=== PATIENT | female | born 2000 | race Caucasian/White ===

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

== ENCOUNTER 2018-12-06 06:59 | Day surgery (SDC) | payer OTHER ==
[2018-12-04 18:54] VITALS: BMI 23.4
[2018-12-06] VITALS (11 sets, daily range): BP systolic 90–104; BP diastolic 48–62; PULSE 56–87; RESP 11–36; Ht 162.6 cm; Wt 62.4 kg
[~2018-12-06] VITALS: Ht 162.6 cm; Wt 62.4 kg
[~2018-12-06 06:59] MED LIST changes: +BEN25 PO; +CEFAZOLIN 2 GM/50 ML (PMX) 50 ML IVPB SCH; +EPIN0.3P4 INJ; +FAMO-96 PO; +IBUP-1561 PO; -IBUP400T22 PO; +PRED20TA PO; +SOD CHLORIDE 0.9% 1,000 ML IV SCH
--- NOTE | 2018-12-06 08:38 | PREAC ---
Date/Time of Note Date/Time of Note DATE: 12/06/18 TIME: 08:36 Anesthesia Eval and Record Evaluation Time Pre-Procedure Interview DATE: 12/06/18 TIME: 08:36 Age 18 Sex female NPO: 8 hrs Preoperative diagnosis left wrist ventral ganglion cyst Planned procedure excision left wrist ventral ganglion cyst Past Medical History Past Medical History: None Surgery & Anesthesia Issues No known issue (never had anesthesia) Meds Anticoagulation: No Beta Soraya within 24 hr: No Reason Beta Soraya not given: Pt. not on B-Soraya Discontinued Scripts Famotidine* (Pepcid*) 20 Mg Tablet, 20 MG PO BID for 4 Days, TAB Prov:NNEKA TRACY PA-C 08/16/17 Diphenhydramine Hcl* (Benadryl*) 25 Mg Cap, 25 MG PO Q6, #30 CAP Prov:NNEKA TRACY PA-C 08/16/17 Epinephrine (Epipen 2-Arnie) 0.3 Mg/0.3 Ml Pen.injctr, 1 EA INJ ONCE PRN for ALLERGIC REACTION, #1 EA Prov:NNEKA TRACY PA-C 08/16/17 Prednisone* (Prednisone*) 20 Mg Tab, 40 MG PO DAILY for 4 Days, TAB Prov:NNEKA TRACY PA-C 08/16/17 Ibuprofen* (Motrin*) 400 Mg Tab, 400 MG PO Q6, #30 TAB Prov:SULAIMAN ALEXIS PA-C 02/01/17 Amoxicillin* (Amoxicillin*) 500 Mg Cap, 500 MG PO TID for 7 Days, #21 CAP Prov:SULAIMAN ALEXIS PA-C 02/01/17 Current Medications Cefazolin Sodium/ Dextrose 50 ml @ 100 mls/hr PREOP IVPB ; Start 12/06/18 at 06:30; Stop 12/06/18 at 20:00 Sodium Chloride 1,000 ml @ 75 mls/hr [id number] IV ; Start 12/06/18 at 06:30; Stop 12/06/18 at 20:00 Meds reviewed: Yes (none) Allergies Coded Allergies: No Known Drug Allergies (Verified Allergy, Mild, 12/06/18) Allergies Reviewed: Yes Labs/Studies Labs Reviewed: Other (HCG only) test: Negative Pre-procedure Exam Last vitals Vital Signs Date Temp Pulse Resp B/P (MAP) Pulse Ox O2 O2 Flow FiO2 Time Delivery Rate 12/06/18 98.2 87 16 103/55 98 Room Air 07:49 (71) Airway: Adequate mouth opening, Adequate thyromental dist Mallampati: Mallampati II Teeth: Normal Lung: Normal Heart: Normal ASA Physical Status ASA physical status: 1 Emergency: None Planned Anesthetic General/MAC: MAC Planned Pain Management Parenteral pain med, Local by surgeon Pre-operative Attestations Prior to commencing anesthesia and surgery, the patient was re-evaluated, there was verification of: *The patient's identity *The results of appropriate recent lab work and preoperative vital signs *The above evaluation not changing prior to induction *Anesthetic plan, risk benefits, alternative and complications discussed with patient/family; questions answered; patient/family understands, accepts and wishes to proceed. MATY MELENDEZ Dec 06, 2018 08:38
[2018-12-06] MEDS ORDERED: BUPIVACAINE 0.25% (MPF) 30 ML INJ ONE (09:11)
[2018-12-06] MEDS ORDERED: CEFAZOLIN 1 GM INJ ONE (09:18)
[2018-12-06] MEDS ORDERED: GLYCOPYRROLATE 0.4 MG INJ ONE (09:18)
[2018-12-06] MEDS ORDERED: NEOSTIGMINE 3 MG/3 ML SYRINGE ONE (09:18)
[2018-12-06] MEDS ORDERED: ROCURONIUM 50 MG INJ ONE (09:18)
[2018-12-06] MEDS ORDERED: PROPOFOL 20 ML ONE (09:18)
[2018-12-06] MEDS ORDERED: MIDAZOLAM 1 MG/ML 2 ML INJ ONE (09:20)
[2018-12-06] MEDS ORDERED: DEXAMETHASONE 4 MG/ML 5 ML INJ ONE (09:20)
[2018-12-06] MEDS ORDERED: FENTAnyl 50 MCG/ML VIAL ONE (09:20)
[2018-12-06] MEDS ORDERED: ONDANSETRON 4 MG INJ ONE (09:20)
[2018-12-06] MEDS ORDERED: KETOROLAC 30 MG INJ ONE (09:31)
--- NOTE | 2018-12-06 09:57 | PAC ---
Date/Time of Note Date/Time of Note DATE: 12/06/18 TIME: 09:57 Post-Anesthesia Notes Post-Anesthesia Note Last documented vital signs Vital Signs Date Temp Pulse Resp B/P (MAP) Pulse Ox O2 O2 Flow FiO2 Time Delivery Rate 12/06/18 98.2 87 16 103/55 98 Room Air 07:49 (71) Activity: WNL Respiratory function: WNL Cardiovascular function: WNL Mental status: Baseline Pain reasonably controlled: Yes Hydration appropriate: Yes Nausea/Vomiting absent: Yes Jamar Galloway M.D. Dec 06, 2018 09:57
[2018-12-06] MEDS ORDERED: EPHEDrine SULFATE 50 MG/5 ML SYG IV PRN (10:00)
[2018-12-06] MEDS ORDERED: DIPHENHYDRAMINE 50 MG INJ IV PRN (10:00)
[2018-12-06] MEDS ORDERED: HYDROmorphONE 1 MG/5 ML IV SYRINGE IV PRN ×3 (10:00)
[2018-12-06] MEDS ORDERED: FENTAnyl 50 MCG/ML VIAL IV PRN ×3 (10:00)
[2018-12-06] MEDS ORDERED: IPRATROPIUM (NEB) 0.5 MG/2.5 ML AMP HHN PRN (10:00)
[2018-12-06] MEDS ORDERED: OXYCODONE/ACETAMINOPHEN (5/325) TAB PO PRN ×2 (10:00)
[2018-12-06] MEDS ORDERED: MEPERIDINE 25 MG INJ IV PRN (10:00)
[2018-12-06] MEDS ORDERED: MIDAZOLAM 1 MG/ML 2 ML INJ IV PRN (10:00)
[2018-12-06] MEDS ORDERED: ALBUTEROL 0.083% (NEB) 2.5 MG/3 ML AMP HHN PRN (10:00)
[2018-12-06] MEDS ORDERED: ONDANSETRON 4 MG INJ IV PRN (10:00)
[2018-12-06] MEDS ORDERED: LABETALOL HCL 20MG INJ IV PRN (10:00)
[2018-12-06] MEDS ORDERED: hydrALAzine 20 MG INJ IV PRN (10:00)
[2018-12-06] MEDS ORDERED: TRIMETHOBENZAMIDE 100 MG/ML VIAL IM PRN (10:00)
--- NOTE | 2018-12-06 10:05 | OPR ---
Date/Time of Note Date/Time of Note DATE: 12/06/18 TIME: 10:02 Operative Report Procedure Date: Dec 06, 2018 Preoperative Diagnosis left wrist ventral ganglion cyst Postoperative Diagnosis same Operation/Procedure Performed 1. left wrist ventral ganglion cyst resection 2 cm cyst 2 cm incision 2. localized adjacent tissue transfer with the use of skin flaps 4 sq cm defect of left ventral wrist 3. therapeutic injection of subcutaneous local anesthesia Surgeon see signature line [employer]isan none Anesthesia Type: general Estimated Blood Loss: 0 - 10 ml's Transfusion none Specimen left wrist ventral ganglion cyst Grafts/Implants none Complications none Pt Condition Post Procedure: stable Indications This is a 18-year-old female with symptomatic and painful left wrist ventral ganglion cyst from over active use of her hand. She required surgical excision of the wrist cyst. Risks alternatives benefits and percent were discussed with the patient. Patient expressed understanding and consents to the operation. Procedure Description Patient is taken to the OR and prepped and draped in usual sterile fashion. Surgical time was performed. IV antibiotics given. Transverse incision at the 15 blade over the left ventricle cyst. Dissection with mosquito graspers were used to dissect out the cyst down to the cyst base. The cyst is then ruptured in a controlled fashion and the contents were suctioned out. The cyst is dissected down to the base and the cyst is excised. Good hemostasis established. Due to tissue defect localized adjacent tissue transfer with use of skin flaps was performed. Multilayer closure with interrupted 0 Vicryl and running 4-0 Monocryl. Therapeutic taste local anesthesia was injected at the incision site. Dry dressings were applied. Rich GARRIDO Dec 06, 2018 10:05
[2018-12-06] MEDS ORDERED: HYDROCODONE/APAP (5/325) TAB PO ONE (10:30)
== END 2018-12-06 11:30 | disposition home or self-care (01) ==
LOC: SDS 06:59
PROVIDERS: ATTEND Surgery
DX: M67.432 Ganglion, left wrist (principal)
CPT/HCPCS: 25111; 88304; J0690; J1100; J1885; J2250; J2405; J2710; J3010; Z7512; Z7610

== ENCOUNTER 2019-03-31 22:22 | Emergency (ER) | payer OTHER ==
[~2019-03-31] VITALS: Ht 162.6 cm; Wt 61.8 kg
[~2019-03-31 22:22] MED LIST changes: -AMOX500C2 PO; -BEN25 PO; +BEN50 PO; -CEFAZOLIN 2 GM/50 ML (PMX) 50 ML IVPB SCH; -EPIN0.3P4 INJ; -FAMO-96 PO; -IBUP-1561 PO; -SOD CHLORIDE 0.9% 1,000 ML IV SCH
[2019-03-31 22:28] VITALS: Ht 162.6 cm; Wt 61.8 kg
[2019-03-31] MEDS ORDERED: DIPHENHYDRAMINE 50 MG INJ IM ONE (23:00)
[2019-03-31] MEDS ORDERED: FAMOTIDINE 20 MG TAB PO ONE (23:00)
[2019-03-31] MEDS ORDERED: predniSONE 20 MG TAB PO ONE (23:00)
--- NOTE | 2019-03-31 23:01 | ERD ---
ER Documentation Chief Complaint Chief Complaint states ate shrimp around 7 pm, c/o itch/congestion/sob. no tongue swelling HPI 18-year-old female presents complaint of allergic reaction after eating shrimp around 7 PM today. Patient states that she is allergic to shrimp but ate it nevertheless. Patient's complaint of itching and congestion but denies any chest pain, vomiting, abdominal pain, difficulty breathing, stridor, wheezing. ROS All systems reviewed and are negative except as per history of present illness. Medications Home Meds No Active Prescriptions or Reported Meds Allergies Allergies: Coded Allergies: No Known Drug Allergies (Verified Allergy, Mild, 12/06/18) PMhx/Soc Medical and Surgical Hx: pt denies Medical Hx, pt denies Surgical Hx History of Surgery: No Anesthesia Reaction: No Hx Neurological Disorder: No Hx Respiratory Disorders: No Hx Cardiac Disorders: No Hx Psychiatric Problems: No Hx Miscellaneous Medical Probl: Yes (LEFT WRIST GANGLION CYST) Hx Alcohol Use: No Hx Substance Use: No Hx Tobacco Use: No FmHx Family History: No diabetes, No coronary disease, No other Physical Exam Vitals Vital Signs Date Temp Pulse Resp B/P (MAP) Pulse Ox O2 O2 Flow FiO2 Time Delivery Rate 03/31/19 99.2 113 20 136/68 99 22:28 (90) Physical Exam Const: No acute distress Head: Atraumatic Eyes: Normal Conjunctiva ENT: Normal External Ears, Nose and Mouth. Tonsils are nonedematous. Tongue is nonedematous. There is no angioedema noted. Airway is patent and clear. Neck: Full range of motion. No meningismus. Resp: Clear to auscultation bilaterally Cardio: Regular rate and rhythm, no murmurs Abd: Soft, non tender, non distended. Normal bowel sounds Skin: No petechiae or rashes Back: No midline or flank tenderness Ext: Maculopapular rash noted over the patient's body diffusely. Neur: Awake and alert Psych: Normal Mood and Affect Results 24 hrs Current Medications Medications Dose Sig/Alvino Start Time Status Last (Trade) Ordered Route PRN Stop Time Admin Dose Reason Admin Famotidine 40 mg ONCE ONCE 03/31/19 (Pepcid) PO 23:00 03/31/19 23:01 Prednisone 60 mg ONCE ONCE 03/31/19 (Prednisone) PO 23:00 03/31/19 23:01 50 mg ONCE ONCE 03/31/19 Diphenhydrami IM 23:00 ne HCl 03/31/19 23:01 (Benadryl) Procedures/MDM MDM: Patients presentation is consistent with allergic reaction. Patient treated with prednisone, pepcid, and benadryl. Patient discharged with 4 day course of prednisone and benadryl. At no time during the ER course did patient exhibit signs of anaphylaxis, respiratory distress, or angioedema. Patient's vitals were WNL throughout the ER course at time of discharge. At this time, patient is stable for discharge and outpatient management. I have instructed the patient to follow-up with his/her primary care physician in 1-2 days. I have discussed with the patient the possibility of needing to see a specialist for further workup and imaging studies if symptoms persist. I have instructed the patient to promptly return to the ER for any new or worsening symptoms including but not limited to increased pain, fever, nausea, vomiting, weakness or LOC. The patient and/or family expressed understanding of and agreement with this plan. All questions were answered. Home care instructions were provided. DISCLAIMER: Inadvertent spelling and grammatical errors are likely due to EHR/dictation software use and do not reflect on the overall quality of patient care. Also, please note that the electronic time recorded on this note does not necessarily reflect the actual time of the patient encounter. Departure Diagnosis: Primary Impression: Allergic reaction Condition: SULAIMAN Spann Mar 31, 2019 23:01
[2019-04-01 00:01] VITALS: BP 107/66; PULSE 78; RESP 18
== END 2019-04-01 00:02 | disposition home or self-care (01) ==
LOC: FTE 22:22
DX: T78.1XXA Other adverse food reactions, not elsewhere classified, initial encounter (principal)
CPT/HCPCS: 96372; J1200; J7512; Z7502; Z7610